=== PATIENT | female | born 1960 | race African-American/Black ===

== ENCOUNTER 2017-02-01 11:01 | Emergency (ER) | payer OTHER ==
[~2017-02-01] VITALS: Ht 170.2 cm; Wt 76.8 kg
[~2017-02-01 11:01] MED LIST: HYDR25TA PO
[2017-02-01 12:13] VITALS: BP 142/81
== END 2017-02-01 12:19 | disposition home or self-care (01) ==
LOC: EMS 11:03
DX: H10.9 Unspecified conjunctivitis (principal); F17.210 Nicotine dependence, cigarettes, uncomplicated; I10 Essential (primary) hypertension; Z88.1 Allergy status to other antibiotic agents
CPT/HCPCS: 99282

== ENCOUNTER 2017-03-01 08:14 | Emergency (ER) | payer OTHER ==
[~2017-03-01] VITALS: Ht 170.2 cm; Wt 76.8 kg
[2017-03-01 09:43] VITALS: BP 129/81
== END 2017-03-01 10:20 | disposition home or self-care (01) ==
LOC: EMS 08:17
DX: I10 Essential (primary) hypertension (principal); F17.210 Nicotine dependence, cigarettes, uncomplicated; J44.9 Chronic obstructive pulmonary disease, unspecified; Z88.1 Allergy status to other antibiotic agents
CPT/HCPCS: 99281

== ENCOUNTER 2017-04-27 12:13 | Emergency (ER) | payer OTHER ==
[~2017-04-27] VITALS: Ht 170.2 cm; Wt 122.3 kg
[2017-04-27 12:28] VITALS: BP 149/103
== END 2017-04-27 13:10 | disposition home or self-care (01) ==
LOC: EMS 12:14
DX: R19.7 Diarrhea, unspecified (principal); J44.9 Chronic obstructive pulmonary disease, unspecified; I10 Essential (primary) hypertension; F17.210 Nicotine dependence, cigarettes, uncomplicated; Z02.89 Encounter for other administrative examinations; Z88.1 Allergy status to other antibiotic agents
CPT/HCPCS: 99281

== ENCOUNTER 2019-09-22 03:55 | Emergency (ER) | payer OTHER ==
[~2019-09-22] VITALS: Ht 170.2 cm; Wt 77.7 kg
[2019-09-22] MEDS ORDERED: HYDR25TA PO (04:09)
[2019-09-22] MEDS ORDERED: METO25XL PO (04:09)
[2019-09-22] MEDS ORDERED: ASPI-556 PO (04:09)
[2019-09-22] MEDS ORDERED: AMLO5TAB9 PO (04:09)
[2019-09-22] MEDS ORDERED: IBUPROFEN 600 MG TABLET PO ONE (04:30)
[2019-09-22 06:03] VITALS: BP 145/90
== END 2019-09-22 07:00 | disposition home or self-care (01) ==
LOC: EMS 03:55
DX: M25.572 Pain in left ankle and joints of left foot (principal); J44.9 Chronic obstructive pulmonary disease, unspecified; I10 Essential (primary) hypertension; F17.210 Nicotine dependence, cigarettes, uncomplicated; Z88.1 Allergy status to other antibiotic agents; Z79.82 Long term (current) use of aspirin

== ENCOUNTER 2020-01-10 17:12 | Inpatient (IN) | payer MEDICAID, OTHER ==
[~2020-01-10] VITALS: Ht 170.2 cm; Wt 71.0 kg
[~2020-01-10 17:12] MED LIST changes: +AMLO5TAB9 PO; +ASPI-556 PO; +HYDR-1475 PO; -HYDR25TA PO; +METO25XL PO
[2020-01-10 17:42] LABS: BASOPHILS % (AUTO) 0.8 % (0.0-2.0); EOSINOPHILS % (AUTO) 4.2 % (1.0-6.0); HEMATOCRIT 43.7 % (36-46); HEMOGLOBIN 14.6 g/dL (12.0-16.0); LYMPHOCYTES # (AUTO) 1.3 K/uL (1.0-4.8); LYMPHOCYTES % (AUTO) 22.6 % (22.0-44.0); MEAN CORPUSCULAR HEMOGLOBIN 31.9 pg (26.0-34.0); MEAN CORPUSCULAR HGB CONC 33.5 G/dL (31.0-37.0); MEAN CORPUSCULAR VOLUME 95 fL (80-100); MONOCYTES # (AUTO) 0.7 K/uL (0.1-1.0); MONOCYTES % (AUTO) 12.7 % (2.0-9.0); NEUTROPHILS # (AUTO) 3.4 K/uL (1.8-7.7); NEUTROPHILS % (AUTO) 59.7 % (40.0-70.0); PLATELET COUNT (AUTO) 301 K/uL (150-450); RED BLOOD CELL COUNT(AUTO) 4.59 MIL/uL (4.00-5.20); RED CELL DISTRIBUTION WIDTH 14.7 % (11.5-14.5)
[2020-01-10] MEDS ORDERED: ASPIRIN 325 MG TABLET PO ONE (17:45)
[2020-01-10 17:55] LABS: CALCIUM, TOTAL 9.7 mg/dL (8.8-10.5); CREATININE 1.15 mg/dL (0.60-1.30); POTASSIUM 5.2 mmol/L (3.5-5.1)
[2020-01-10 18:17] LABS: ALBUMIN 2.8 g/dL (3.4-5.0); BILIRUBIN,TOTAL 1.2 mg/dL (0.1-1.0); FREE T4 (FREE THYROXINE) 1.57 ng/dL (0.76-1.46); THYROID STIMULATING HORMONE 1.84 uIU/mL (0.36-3.74); TOTAL PROTEIN, SERUM 7.6 g/dL (6.4-8.2)
[2020-01-10] MEDS ORDERED: METOPROLOL TARTRATE 5 MG/5 ML VIAL IVP ONE (18:30)
[2020-01-10] MEDS ORDERED: IOVERSOL 350 MG/ML 150 ML VIAL ONE (18:42)
[2020-01-10] MEDS ORDERED: SODIUM CHLORIDE 0.9% 100 ML ONE (18:42)
[2020-01-10 18:59] LABS: INR 1.2 (0.9-1.1); PROTHROMBIN TIME 11.8 SEC (9.4-11.6)
[2020-01-10] MEDS ORDERED: METOPROLOL TARTRATE 50 MG TABLET PO ONE (19:00)
[2020-01-10] MEDS ORDERED: HEPARIN SODIUM 25000 UNITS/D5W 250 ML IV PRN (20:32)
[2020-01-10] MEDS ORDERED: HEPARIN SODIUM,PORCINE 5,000 UNITS/ML VIAL IVP PRN ×2 (20:45)
[2020-01-10] MEDS ORDERED: HEPARIN SODIUM,PORCINE 5,000 UNITS/ML VIAL IVP ONE ×2 (20:45)
[2020-01-10] MEDS ORDERED: 0.9% SODIUM CHLORIDE 10 ML SYRINGE IVP PRN (21:00)
[2020-01-10] MEDS ORDERED: ONDANSETRON HCL 4 MG/2 ML VIAL IVP PRN (21:00)
[2020-01-10] MEDS ORDERED: ACETAMINOPHEN 325 MG TABLET PO PRN (21:00)
[2020-01-10 21:16] LABS: APPEARANCE,URINE CLEAR (CLEAR); BILIRUBIN,URINE NEGATIVE (NEGATIVE); GLUCOSE, URINE (UA) NEGATIVE (NEGATIVE); KETONES,URINE NEGATIVE (NEGATIVE); LEUKOCYTE ESTERASE ,URINE NEGATIVE (NEGATIVE); NITRATE,URINE NEGATIVE (NEGATIVE); OCCULT BLOOD,URINE NEGATIVE (NEGATIVE); PROTEIN,URINE TRACE (NEGATIVE)
[2020-01-11] MEDS ORDERED: MORPHINE SULFATE 2 MG/ML SYRINGE IVP PRN
[2020-01-11] MEDS ORDERED: DEXTROSE 50%-WATER 25 GM/50 ML SYRINGE IVP PRN
[2020-01-11] MEDS ORDERED: 0.9% SODIUM CHLORIDE 10 ML SYRINGE IVP PRN
[2020-01-11] MEDS ORDERED: ACETAMINOPHEN 325 MG TABLET PO PRN
[2020-01-11] MEDS ORDERED: MAGNESIUM HYDROXIDE SUSPENSION 30 ML UDCUP PO PRN
[2020-01-11] MEDS ORDERED: ONDANSETRON HCL 4 MG/2 ML VIAL IVP PRN
[2020-01-11] MEDS ORDERED: NITROGLYCERIN TD ONE
[2020-01-11] MEDS ORDERED: INSULIN LISPRO 100 UNITS/ML SQ PRN
[2020-01-11] MEDS: DOCUSATE SODIUM 100 MG CAPSULE PO SCH ×2 (00:21→08:23)
[2020-01-11 05:04] LABS: BASOPHILS % (AUTO) 1.2 % (0.0-2.0); EOSINOPHILS % (AUTO) 2.3 % (1.0-6.0); HEMATOCRIT 46.6 % (36-46); HEMOGLOBIN 15.3 g/dL (12.0-16.0); LYMPHOCYTES # (AUTO) 1.5 K/uL (1.0-4.8); LYMPHOCYTES % (AUTO) 28.5 % (22.0-44.0); MEAN CORPUSCULAR HEMOGLOBIN 31.5 pg (26.0-34.0); MEAN CORPUSCULAR HGB CONC 32.9 G/dL (31.0-37.0); MEAN CORPUSCULAR VOLUME 96 fL (80-100); MONOCYTES # (AUTO) 0.8 K/uL (0.1-1.0); MONOCYTES % (AUTO) 15.8 % (2.0-9.0); NEUTROPHILS # (AUTO) 2.7 K/uL (1.8-7.7); NEUTROPHILS % (AUTO) 52.2 % (40.0-70.0); PLATELET COUNT (AUTO) 272 K/uL (150-450); RED BLOOD CELL COUNT(AUTO) 4.86 MIL/uL (4.00-5.20); RED CELL DISTRIBUTION WIDTH 14.8 % (11.5-14.5)
[2020-01-11 05:14] LABS: CALCIUM, TOTAL 9.7 mg/dL (8.8-10.5); CREATININE 1.14 mg/dL (0.60-1.30); POTASSIUM 4.3 mmol/L (3.5-5.1)
[2020-01-11 07:14] LABS: GLUCOSE,POINT OF CARE 95 MG/DL (70-110)
[2020-01-11 08:00] VITALS: BP 167/93
[2020-01-11] MEDS ORDERED: AmLODIPine BESYLATE 5 MG TABLET PO SCH (09:00)
[2020-01-11] MEDS ORDERED: FAMOTIDINE 10 MG/ML 2 ML VIAL IVP SCH (09:00)
[2020-01-11] MEDS ORDERED: METOPROLOL TARTRATE 25 MG TABLET PO SCH (09:00)
[2020-01-11] MEDS ORDERED: FUROSEMIDE 20 MG/2 ML VIAL IVP SCH (09:00)
== END 2020-01-11 08:38 | disposition left against medical advice (07) | DRG 280 ==
LOC: EMS 17:12 → ICU 23:32
PROVIDERS: ADMIT Internal Medicine; ATTEND Internal Medicine
DX: I21.4 Non-ST elevation (NSTEMI) myocardial infarction (principal); E43 Unspecified severe protein-calorie malnutrition; I50.31 Acute diastolic (congestive) heart failure; E87.1 Hypo-osmolality and hyponatremia; I74.5 Embolism and thrombosis of iliac artery; I11.0 Hypertensive heart disease with heart failure; I48.91 Unspecified atrial fibrillation; E87.5 Hyperkalemia; J44.9 Chronic obstructive pulmonary disease, unspecified; M19.90 Unspecified osteoarthritis, unspecified site; F17.210 Nicotine dependence, cigarettes, uncomplicated; R73.9 Hyperglycemia, unspecified; N28.89 Other specified disorders of kidney and ureter; Z53.29 Procedure and treatment not carried out because of patient's decision for other reasons; I70.1 Atherosclerosis of renal artery; Z68.24 Body mass index [BMI] 24.0-24.9, adult; Z91.19 Patient's noncompliance with other medical treatment and regimen; Z88.1 Allergy status to other antibiotic agents; Z88.6 Allergy status to analgesic agent
CPT/HCPCS: 71275; 75635; 83605; 84439; 84443; 87081; 93005; 93306; 99291; G0378; J1644; J1940; J3490; J7050

== ENCOUNTER 2023-09-04 19:53 | Emergency (ER) | payer MEDICARE, OTHER ==
[~2023-09-04] VITALS: Ht 170.2 cm; Wt 77.7 kg
[~2023-09-04 19:53] MED LIST changes: +AMLO-257 PO; -AMLO5TAB9 PO; -HYDR-1475 PO; +HYDR25TA2 PO
[2023-09-04 20:01] VITALS: BP 105/71; PULSE 152; RESP 14; TEMP 98.1
== END 2023-09-04 21:41 | disposition left against medical advice (07) ==
LOC: EMS 19:54
DX: M79.605 Pain in left leg (principal); M79.604 Pain in right leg; Z53.21 Procedure and treatment not carried out due to patient leaving prior to being seen by health care provider
CPT/HCPCS: 93005; 99281; Z7502

== ENCOUNTER 2023-09-09 09:22 | Emergency (ER) | payer MEDICARE, OTHER ==
[~2023-09-09] VITALS: Ht 167.6 cm; Wt 77.3 kg
[2023-09-09 09:37] VITALS: TEMP 97.8
[2023-09-09] MEDS ORDERED: IPRA4AER IH (09:38)
[2023-09-09] MEDS ORDERED: GABA-1181 PO (09:38)
[2023-09-09] MEDS ORDERED: METO100T14 PO (09:38)
[2023-09-09] MEDS ORDERED: ALLO100T PO (09:38)
[2023-09-09] MEDS ORDERED: ACET-66 PO (09:38)
[2023-09-09] MEDS ORDERED: AMLO5TAB66 PO (09:38)
[2023-09-09] MEDS ORDERED: INDO50CA97 PO (09:38)
[2023-09-09 10:30] VITALS: BP 138/84; PULSE 72; RESP 16
[2023-09-09] MEDS ORDERED: KETOROLAC TROMETHAMINE 30 MG/ML VIAL IM ONE (10:45)
== END 2023-09-09 11:00 | disposition home or self-care (01) ==
LOC: EMS 09:27
DX: M79.661 Pain in right lower leg (principal); R60.0 Localized edema; J44.9 Chronic obstructive pulmonary disease, unspecified; I10 Essential (primary) hypertension; M19.90 Unspecified osteoarthritis, unspecified site; F17.210 Nicotine dependence, cigarettes, uncomplicated; Z88.1 Allergy status to other antibiotic agents; Z88.5 Allergy status to narcotic agent
CPT/HCPCS: 99285; 93970; 96372; J1885

== ENCOUNTER 2023-11-24 01:04 | Emergency (ER) | payer MEDICARE, OTHER ==
[~2023-11-24] VITALS: Ht 170.2 cm; Wt 77.7 kg
[~2023-11-24 01:04] MED LIST changes: +ACET-66 PO; +ALLO100T PO; -AMLO-257 PO; +AMLO5TAB66 PO; -ASPI-556 PO; +GABA-1181 PO; -HYDR25TA2 PO; +INDO50CA97 PO; +IPRA4AER IH; +METO100T14 PO; -METO25XL PO
[2023-11-24 01:13] VITALS: BP 116/56; PULSE 79; RESP 14; TEMP 97.8
[2023-11-24] MEDS ORDERED: FLUT16H NASAL (10:12)
[2023-11-24] MEDS ORDERED: HYDR25TA2 PO (10:12)
[2023-11-24] MEDS ORDERED: ACET-3385 PO (11:14)
[2023-11-24] MEDS ORDERED: IBUP-1492 PO (11:14)
== END 2023-11-24 02:50 | disposition left against medical advice (07) ==
LOC: EMS 01:05
DX: M79.674 Pain in right toe(s) (principal); Z53.21 Procedure and treatment not carried out due to patient leaving prior to being seen by health care provider
CPT/HCPCS: 99281; Z7502

== ENCOUNTER 2023-11-24 04:24 | Emergency (ER) | payer MEDICARE, OTHER ==
[~2023-11-24] VITALS: Ht 170.2 cm; Wt 77.7 kg
[2023-11-24 04:30] VITALS: BP 129/67; PULSE 121; RESP 14; TEMP 94.1
[2023-11-24] MEDS ORDERED: FLUT16H NASAL (10:12)
[2023-11-24] MEDS ORDERED: HYDR25TA2 PO (10:12)
[2023-11-24] MEDS ORDERED: IBUP-1492 PO (11:14)
[2023-11-24] MEDS ORDERED: ACET-3385 PO (11:14)
== END 2023-11-24 05:41 | disposition left against medical advice (07) ==
LOC: EMS 04:26
DX: M79.676 Pain in unspecified toe(s) (principal); Z53.21 Procedure and treatment not carried out due to patient leaving prior to being seen by health care provider
CPT/HCPCS: 99281; Z7502

== ENCOUNTER 2023-11-24 10:07 | Emergency (ER) | payer MEDICARE, OTHER ==
[2023-11-24] MEDS ORDERED: HYDR25TA2 PO (10:12)
[2023-11-24] MEDS ORDERED: FLUT16H NASAL (10:12)
[2023-11-24] MEDS ORDERED: KETOROLAC TROMETHAMINE 30 MG/ML VIAL IM ONE (10:30)
[2023-11-24] MEDS ORDERED: ACETAMINOPHEN 500 MG TABLET PO ONE (10:30)
[2023-11-24] MEDS ORDERED: IBUP-1492 PO (11:14)
[2023-11-24] MEDS ORDERED: ACET-3385 PO (11:14)
[2023-11-24 11:28] VITALS: BP 134/66; PULSE 118; RESP 18
== END 2023-11-24 12:06 | disposition left against medical advice (07) ==
LOC: EMS 10:11
DX: M79.674 Pain in right toe(s) (principal); M19.90 Unspecified osteoarthritis, unspecified site; J44.9 Chronic obstructive pulmonary disease, unspecified; I10 Essential (primary) hypertension; F17.210 Nicotine dependence, cigarettes, uncomplicated; Z88.1 Allergy status to other antibiotic agents; Z88.5 Allergy status to narcotic agent
CPT/HCPCS: 99283; 73660; 96372; J1885

== ENCOUNTER 2023-12-29 04:55 | Emergency (ER) | payer MEDICARE, OTHER ==
[~2023-12-29] VITALS: Ht 170.2 cm; Wt 77.0 kg
[~2023-12-29 04:55] MED LIST changes: +ACET-3385 PO; -AMLO5TAB66 PO; +FLUT16H NASAL; +HYDR25TA2 PO; +IBUP-1492 PO; -INDO50CA97 PO
[2023-12-29 05:05] VITALS: BP 119/93; PULSE 134; RESP 16; TEMP 97.9
[2023-12-29] MEDS: IBUPROFEN 600 MG TABLET PO ONE (07:01)
== END 2023-12-29 07:19 | disposition left against medical advice (07) ==
LOC: EMS 04:57
DX: L60.0 Ingrowing nail (principal); M19.90 Unspecified osteoarthritis, unspecified site; J44.9 Chronic obstructive pulmonary disease, unspecified; I11.0 Hypertensive heart disease with heart failure; F17.210 Nicotine dependence, cigarettes, uncomplicated; Z98.51 Tubal ligation status; Z88.1 Allergy status to other antibiotic agents; Z88.5 Allergy status to narcotic agent
CPT/HCPCS: 99282; Z7502; Z7610

== ENCOUNTER 2024-01-05 07:09 | Emergency (ER) | payer MEDICARE, OTHER ==
[~2024-01-05] VITALS: Ht 170.2 cm; Wt 77.7 kg
[2024-01-05 07:31] VITALS: TEMP 98.2
[2024-01-05] MEDS ORDERED: ACET-66 PO (07:41)
[2024-01-05] MEDS ORDERED: TERB30CR8 TP (07:41)
[2024-01-05] MEDS ORDERED: GABA-1181 PO (07:41)
[2024-01-05] MEDS ORDERED: TERB250T89 PO (07:41)
[2024-01-05] MEDS ORDERED: TIOT185 IH (07:41)
[2024-01-05] MEDS ORDERED: IBUP-1554 PO (07:41)
[2024-01-05] MEDS ORDERED: DiphenhydrAMINE HCL 25 MG CAPSULE PO ONE (07:45)
[2024-01-05] MEDS ORDERED: PredniSONE 20 MG TABLET PO ONE (07:45)
[2024-01-05] MEDS ORDERED: ACETAMINOPHEN 500 MG TABLET PO ONE (07:45)
[2024-01-05 07:57] VITALS: BP 113/84; PULSE 98; RESP 16
== END 2024-01-05 08:00 | disposition home or self-care (01) ==
LOC: EMS 07:09
DX: B35.1 Tinea unguium (principal); J44.9 Chronic obstructive pulmonary disease, unspecified; I48.91 Unspecified atrial fibrillation; M19.90 Unspecified osteoarthritis, unspecified site; F17.210 Nicotine dependence, cigarettes, uncomplicated; I11.0 Hypertensive heart disease with heart failure; Z98.51 Tubal ligation status; Z88.1 Allergy status to other antibiotic agents; Z88.5 Allergy status to narcotic agent
CPT/HCPCS: 99283; J7512

== ENCOUNTER → 2024-05-10 | Emergency (ER) | payer MEDICARE, OTHER ==
[~2024-05-10] VITALS: Ht 170.2 cm; Wt 77.0 kg
[~2024-05-10] MED LIST changes: +IBUP-1554 PO; +TERB250T89 PO; +TERB30CR8 TP; +TIOT185 IH
[2024-05-10 21:50] VITALS: TEMP 98
[2024-05-10] MEDS: ONDANSETRON HCL 4 MG/2 ML VIAL IVP ONE (22:20)
[2024-05-10] MEDS: FentaNYL CITRATE PF 100 MCG/2 ML VIAL IVP ONE (22:20)
[2024-05-10] MEDS: CefTRIAXone 1 GM/DEXTROSE 50 ML IV ONE (22:23)
[2024-05-10] MEDS: PERTUSS(ACELL),DIPH,TET/PF 0.5 ML SYRINGE [ADULT] IM. ONE (22:23)
[2024-05-10 22:49] VITALS: BP 123/89; PULSE 136; RESP 20
== END | disposition still patient (30) ==
LOC: EMS 22:11
DX: S81.811A Laceration without foreign body, right lower leg, initial encounter (principal); J44.9 Chronic obstructive pulmonary disease, unspecified; I11.0 Hypertensive heart disease with heart failure; F17.210 Nicotine dependence, cigarettes, uncomplicated; Z98.51 Tubal ligation status; Z88.1 Allergy status to other antibiotic agents; Z88.5 Allergy status to narcotic agent; W26.8XXA Contact with other sharp object(s), not elsewhere classified, initial encounter; Y93.89 Activity, other specified; Y92.89 Other specified places as the place of occurrence of the external cause; Y99.8 Other external cause status
CPT/HCPCS: 99291; 96365; 96375; 73590; 90715; 90471; J0696; J3010; J2405